=== PATIENT | male | born 1965 | race Caucasian/White ===

== ENCOUNTER 2018-07-27 08:46 | Emergency (ER) | payer BC, SELFPAY ==
[2018-07-27 08:47] VITALS: BP 155/93; PULSE 89; RESP 16; TEMP 36.6; BMI 21.6
--- NOTE | 2018-07-27 08:55 | ED.VISSUMM ---
- ER Visit Summary Date of Service: 07/27/18 Chief Complaint: Back pain History of Present Illness: The patient is a 53 M who presents with back pain. He has had this for 2 weeks. Is in the right thoracic area near the scapula. Is worse with movement. Remaining still makes it better. Advil is not helping at home. He denies any specific injury. Physical Examination: Vital signs are reviewed. Back exam reveals tenderness in the right paraspinal area in the thoracic region. There is no scapular tenderness. There is no spinal tenderness. Test Results: None performed Emergency Department Course and Treatment: This appears to be a muscular strain. He has no bony tenderness. I do not feel x-rays are necessary. I will give him naproxen and Flexeril. He will follow-up with his PCP Treatment Plan: [] Disposition: Discharge Impression: Thoracic strain This note was generated with [employer] dictation software. It may contain incorrect words, spelling, and punctuation that were not noted in review of the chart prior to signing ED Disposition - Plan for ED Patient: Chief Complaint: Back
--- NOTE | 2018-07-27 08:56 | ED.DEP ---
ED Disposition - Plan for ED Patient: Disposition: Home or Assisted Living Chief Complaint: Back Instructions: ED Spasm Back No Trauma Prescriptions: Naproxen [Naprosyn] 500 mg PO BID PRN #20 tab Cyclobenzaprine [Flexeril] 10 mg PO TID PRN #20 tab PRN Reason: Muscle Spasm
[2018-07-27] MEDS: Naproxen 500 MG Tablet PO (09:12)
[2018-07-27 09:22] VITALS: PULSE 68; RESP 16; O2SAT 98
== END 2018-07-27 09:27 | disposition home or self-care (01) ==
PROVIDERS: Emergency Provider Emergency Medicine; Family Provider Internal Medicine; PCP Internal Medicine
DX: S29.012A Strain of muscle and tendon of back wall of thorax, initial encounter (principal); X58.XXXA Exposure to other specified factors, initial encounter; Y93.9 Activity, unspecified; Y92.9 Unspecified place or not applicable; Z72.0 Tobacco use
CPT/HCPCS: 99283

== ENCOUNTER → 2025-01-27 | Outpatient (CLI) | payer OTHER, SELFPAY ==
[2025-01-27 12:27] LABS: Hematocrit 45.1 % (40-54); Hemoglobin 15.0 g/dL (13.0-16.5); Immature Granulocytes Count 0.020 X10^3/uL (0.0-0.0); Mean Corp Hgb Conc 33.3 g/dL (32-36); Mean Corpuscular Volume 86.2 fL (80-94); Mean Platelet Vol. 9.4 fl (6.2-12.0); NRBC Flagged by Analyzer 0 % (0-5); Platelet Count 343 K/mm3 (150-450); RBC Distribution Width CV 12.8 % (11.6-14.6); RBC Distribution Width SD 39.9 fl (35.1-43.9); Red Blood Count 5.23 M/mm3 (4.6-6.2); White Blood Count 5.9 K/mm3 (4.4-11.0)
[2025-01-27 13:12] LABS: AST(SGOT) 18 U/L (<=37); Alanine Aminotransfer ALT/SGPT 15 U/L (<=46); Albumin, Serum 4.2 g/dL (3.5-5.0); Alkaline Phosphatase 66 U/L (40-129); Anion Gap 10 (5-15); BUN 16 mg/dL (4-19); BUN/Creat Ratio 15.6 RATIO (10-20); Calcium,Total 9.6 mg/dL (7.6-11.0); Carbon Dioxide 25.2 mmol/L (21.0-32.0); Chloride 108 mmol/L (98-108); Cholesterol 214 mg/dL (<=200); Globulin 2.9 g/dL (2.2-4.2); Glucose 113 mg/dL (70-99); Low Density Lipoprotein Calc. 146 mg/dL; Potassium 5.2 mmol/L (3.3-5.1); Triglycerides 141 mg/dL; Very Low Density Lipoprotein 28 mg/dL (5-40); cholesterol:hdl ratio screen 5.40
== END | disposition home or self-care (01) ==
PROVIDERS: PCP Internal Medicine; Referring Provider Internal Medicine; Visit Provider Internal Medicine
DX: I10 Essential (primary) hypertension (principal); Z13.6 Encounter for screening for cardiovascular disorders
CPT/HCPCS: 36415; 80053; 80061; 84443; 85025

== ENCOUNTER 2025-02-15 07:49 | Outpatient (CLI) | payer OTHER, SELFPAY ==
--- NOTE | 2025-02-15 07:51 | CT_ITS ---
PROCEDURE: LOW DOSE CT LUNG SCREENING 02/15/2025 REASON FOR EXAM: SCREENING TECHNIQUE: LOW DOSE CT LUNG SCREENING Coronal and Sagittal reconstruction series were provided. One or more dose reduction techniques were used (e.g., Automated exposure control, adjustment of the mA and/or kV according to patient size, use of iterative reconstruction technique). REFERENCE LINK: [employer] Lung-RADS RADIATION DOSE SUMMARY: CTDlvol: 3 mGy DLP: 124 mGycm COMPARISON: No FINDINGS: Central airways are patent. There is bronchial wall thickening. Moderate emphysema. Biapical scarring. Well inflated lungs. No consolidation, effusion, or pneumothorax. On the left, series 2, image 130, 2 mm noncalcified lower lobe nodule. On the right, series 2, image 194, 4 mm noncalcified lower lobe nodule. Image 2 origin 16, 3 mm noncalcified lower lobe nodule. Image 123, 2 mm noncalcified middle lobe nodule. Unremarkable base of neck and axilla. Thoracic spine scoliosis and degeneration. Normal esophagus. Normal heart size. No acute vascular pathology. No acute chest wall findings. No acute upper abdominal findings. CT/Low Dose CT Lung Screening IMPRESSION: Bilateral noncalcified lung nodules measuring up to 4 mm. Lung-RADS Category: 2 Other Significant Findings: Reading Location: [facility]
--- OUTSIDE RECORDS SUMMARY | 2025-02-15 07:52 | XMS RPT_ITS | CCD ---
Author Organization [facility] Care Team Providers Care Supervisor Partial Denture Department Name Role Phone CRISTINO DIEGO Unavailable Unavailable DEMETRIS PACHECO DO Attending Unavailable DEMETRIS PACHECO DO Primary Care Unavailable DEMETRIS PACHECO DO Admitting Unavailable Delvin BOOTHE, Dr. Christianson Primary Care Provider [phone] Dr. Sammy Hargrove MD Referring Provider Robbie BOOTHE, Dr. Jaramillo Attending Provider Dr. Ella Avalos MD Primary Care Provider [phone] Dr. Ella Avalos MD Referring Provider Sammy Hargrove Referring Unavailable Sammy Hargrove Primary Care Unavailable Ella Avalos Attending Unavailable Ella Avalos Primary Care Unavailable lEla Avalos Referring Unavailable Ella Avalos Attending Unavailable Ella Avalos Primary Care Unavailable Ella Avalos Referring Unavailable Ella Avalos Attending Unavailable Medications Current Medications Medication Drug Class(es) Dates Sig (Normalized) Sig (Original) atorvastatin 10 mg oral tablet (1 source) HMG-CoA Reductase Inhibitor Start: 01-27-2025 take 1 tablet by mouth at bedtime Atorvastatin (Lipitor) 10 mg tablet Active 10 mg PO AT BEDTIME 30 January 27, 2025 12:00am lisinopril 5 mg oral tablet (2 sources) Angiotensin Converting Enzyme Inhibitor Start: 01-22-2025 take 1 tablet by mouth once daily Lisinopril 5 mg tablet Active 5 mg PO daily 30 January 22, 2025 12:00am 24 hr loratadine 10 mg / pseudoephedrine sulfate 240 mg extended release oral tablet (2 sources) alpha-Adrenergic Agonist Start: 01-22-2025 take 1 tablet by mouth every twenty-four hours Loratadine-Pseudoe phedrine (Claritin-D 24 Hour) 10-240 mg tablet extended release 24 hr Active 1 {tbl} PO daily January 22, 2025 12:00am On Hold: Order Changed montelukast 10 mg oral tablet (2 sources) Leukotriene Receptor Antagonist Start: 01-22-2025 take 1 tablet by mouth at bedtime Montelukast (Singulair) 10 mg tablet Active 10 mg PO AT BEDTIME 30 January 22, 2025 12:00am Completed/Discontinued Medications Medication Drug Class(es) Dates Sig (Normalized) Sig (Original) cyclobenzaprine hydrochloride 10 mg oral tablet (2 sources) Muscle Relaxant Start: 07-27-2018 End: 01-22-2025 take 1 tablet by mouth three times daily as needed for muscle spasms Cyclobenzaprine 10 MG tablet Discontinued 10 mg PO THREE TIMES A DAY as needed for Muscle Spasm July 27, 2018 1:00am January 22, 2025 1:52pm naproxen 500 mg oral tablet (2 sources) Nonsteroidal Anti-inflammatory Drug Start: 07-27-2018 End: 01-22-2025 take 1 tablet by mouth twice daily as needed Naproxen 500 MG tablet Discontinued 500 mg PO TWICE DAILY NEEDED July 27, 2018 1:00am January 22, 2025 1:52pm Problems Active Problems Problem Classification Problem Date Documented Date Episodic/Chronic Administrative/social admission (3 sources) First encounter by subject; Translations: [Persons encountering health services in other specified circumstances] Onset: 01-29-2025 01-22-2025 Episodic Allergic reactions (2 sources) Allergic condition; Translations: [Allergy, unspecified, initial encounter] 01-22-2025 Episodic E Codes: Struck by; against (1 source) Striking against or struck by other objects, initial encounter; Translations: [Striking against or struck by other objects, initial encounter] Onset: 04-14-2022 Episodic Essential hypertension (5 sources) Essential hypertension; Translations: [Essential (primary) hypertension] Onset: 01-31-2025 01-22-2025 Chronic Open wounds of extremities (3 sources) Laceration without foreign body of right great toe without damage to nail, initial encounter; Translations: [Laceration without foreign body of right great toe without damage to nail, initial encounter] Onset: 04-14-2022 Episodic Other screening for suspected conditions (not mental disorders or infectious disease) (10 sources) Patient encounter status; Translations: [Encounter for screening for cardiovascular disorders] Onset: 01-29-2025 01-22-2025 Episodic Other upper respiratory disease (1 source) Seasonal allergy; Translations: [Other seasonal allergic rhinitis] 01-22-2025 Chronic Other upper respiratory disease (1 source) Other seasonal allergic rhinitis; Translations: [Other seasonal allergic rhinitis] Onset: 01-29-2025 Chronic Residual codes; unclassified (2 sources) FH: Migraine; Translations: [Family history of epilepsy and other diseases of the nervous system] 01-22-2025 Episodic Residual codes; unclassified (1 source) Medication refused; Translations: [Immunization not carried out because of patient refusal] 01-22-2025 Episodic Residual codes; unclassified (1 source) Immunization not carried out because of patient refusal; Translations: [Immunization not carried out because of patient refusal] Onset: 01-29-2025 Episodic Screening and history of mental health and substance abuse codes (1 source) Encounter for screening for depression; Translations: [Encounter for screening for depression] Onset: 01-29-2025 Episodic Unclassified (1 source) Unknown / UNK(Unknown) Onset: 01-19-2018 Past or Other Problems Problem Classification Problem Date Documented Da te Episodic/Chronic Unclassified (1 source) RT SHOULDER INJURY Onset: 01-19-2018 Results Test Name Value Interpretation Reference Range Facility Absolute lymphocyte countOrd ered By: Ella Avalos on 01-27-2025 Lymphocytes Auto (Unsp spec) [#/Vol] 1.99 10*3/uL 0.83-4.51 [facility] Absolute neutrophil countOrd ered By: Ella Avalos on 01-27-2025 Neutrophils (Bld) [#/Vol] 3.3 10*3/uL 2.0-7.7 [facility] Anion gap in Serum or Plasma Ordered By: Ella Avalos on 01-27-2025 Anion gap [Moles/Vol] 10 mmol/L 5-[address] [facility] Automated lymphocyte count a s percentage of total leukocytesOrdered By: Ella Avalos on 01-27-2025 Lymphocytes/100 WBC Auto (Unsp spec) 33.5 % 19-41 [facility] BUN/creatinine ratioOrdered By: Ella Avalos on 01-27-2025 Urea nitrogen/Creatinine [Mass ratio] 15.6 mg/mg 10-20 [facility] Basophil percentageOrdered B y: Ella Avalos on 01-27-2025 Basophils/100 WBC (Bld) 0.7 % 0-1 [facility] Bilirubin, totalOrdered By: Ella Avalos on 01-27-2025 Bilirubin [Mass/Vol] 0.40 mg/dL 0.00-1.30 [facility] CBC W/Diff, Automatedon Absolute Lymph 1.99 X10 3/uL Normal 0.83-4.51 [facility] Comment on above: Performed By: #### L 100.0100, L501.9520, L500.4050, L500.4100 #### [facility] [address] [place], [address] Absolute Neut 3.3 X10 3/uL Normal 2.0-7.7 [facility] Comment on above: Performed By: #### L 100.0100, L501.9520, L500.4050, L500.4100 #### [facility] [address] [place], [address] Basophils/100 WBC (Bld) 0.7 % Normal 0-1 [facility] Comment on above: Performed By: #### L 100.0100, L501.9520, L500.4050, L500.4100 #### [facility] [address] [place], [address] Eosinophils/100 WBC (Bld) 1.5 % Normal 0-5 [facility] Comment on above: Performed By: #### L 100.0100, L501.9520, L500.4050, L500.4100 #### [facility] [address] [place], [address] Erythrocyte distribution width (RBC) [Ratio] 12.8 % Normal 11.6-14.6 [facility] Comment on above: Performed By: #### L 100.0100, L501.9520, L500.4050, L500.4100 #### [facility] [address] [place], [address] Hematocrit (Bld) [Volume fraction] 45.1 % Normal 40-54 [facility] Comment on above: Performed By: #### L 100.0100, L501.9520, L500.4050, L500.4100 #### [facility] [address] [place], [address] Hemoglobin (Bld) [Mass/Vol] 15.0 g/dL Normal 13.0-16.5 [facility] Comment on above: Performed By: #### L 100.0100, L501.9520, L500.4050, L500.4100 #### [facility] [address] [place], [address] IG% 0.300 Normal 0.0-0.9 [facility] Comment on above: Result Comment: IG% - Immature Granulocytes (promyelocytes, myelocytes and metamyelocytes) > 1% indicates that a LEFT SHIFT is Present. Performed By: #### L 100.0100, L501.9520, L500.4050, L500.4100 #### [facility] [address] [place], [address] Lymphocytes/100 WBC (Bld) 33.5 % Normal 19-41 [facility] Comment on above: Performed By: #### L 100.0100, L501.9520, L500.4050, L500.4100 #### [facility] [address] [place], [address] MCH (RBC) [Entitic mass] 28.7 pg Normal 27.0-32.0 [facility] Comment on above: Performed By: #### L 100.0100, L501.9520, L500.4050, L500.4100 #### [facility] [address] [place], [address] MCHC (RBC) [Mass/Vol] 33.3 g/dL Normal 32-[address] [facility] Comment on above: Performed By: #### L 100.0100, L501.9520, L500.4050, L500.4100 #### [facility] [address] [place], [address] MCV (RBC) [Entitic vol] 86.2 fL Normal 80-94 [facility] Comment on above: Performed By: #### L 100.0100, L501.9520, L500.4050, L500.4100 #### [facility] [address] [place], [address] Monocytes/100 WBC (Bld) 9.3 % Normal 0-10 [facility] Comment on above: Performed By: #### L 100.0100, L501.9520, L500.4050, L500.4100 #### [facility] [address] [place], [address] Neutrophils/100 WBC (Bld) 54.7 % Normal 47-70 [facility] Comment on above: Performed By: #### L 100.0100, L501.9520, L500.4050, L500.4100 #### [facility] [address] [place], [address] Nucleated RBC (Bld) [#/Vol] 0 10*3/uL Normal 0-5 [facility] Comment on above: Performed By: #### L 100.0100, L501.9520, L500.4050, L500.4100 #### [facility] [address] [place], [address] Platelet mean volume (Bld) [Entitic vol] 9.4 fL Normal 6.2-12.0 [facility] Comment on above: Performed By: #### L 100.0100, L501.9520, L500.4050, L500.4100 #### [facility] [address] [place], [address] Platelets (Bld) [#/Vol] 343 10*3/uL Normal 150-450 [facility] Comment on above: Performed By: #### L 100.0100, L501.9520, L500.4050, L500.4100 #### [facility] [address] [place], [address] RBC (Bld) [#/Vol] 5.23 10*6/uL Normal 4.6-6.2 [facility] Comment on above: Performed By: #### L 100.0100, L501.9520, L500.4050, L500.4100 #### [facility] [address] [place], [address] RDW SD 39.9 fl Normal 35.1-43.9 [facility] Comment on above: Performed By: #### L 100.0100, L501.9520, L500.4050, L500.4100 #### [facility] [address] [place], [address] WBC (Bld) [#/Vol] 5.9 10*3/uL Normal 4.4-11.0 [facility] Comment on above: Performed By: #### L 100.0100, L501.9520, L500.4050, L500.4100 #### [facility] [address] [place], [address] Calculated very low density lipoprotein (VLDL) cholesterol measurementOrdered By: Ella Avalos on 01-27-2025 Calculated very low density lipoprotein (VLDL) cholesterol measurement 28 mg/dL 5-40 [facility] Carbon dioxide, total [Moles /volume] in Central venous bloodOrdered By: Ella Avalos on 01-27-2025 CO2 [Moles/Vol] 25.2 mmol/L 21.0-32.0 [facility] Chloride assayOrdered By: Willian Avalos on 01-27-2025 Chloride [Moles/Vol] 108 mmol/L 98-108 [facility] Comprehensive Metabolic Prof ilon 01-27-2025 Albumin [Mass/Vol] 4.2 g/dL Normal 3.5-5.0 [facility] Comment on above: Performed By: #### L 100.0100, L501.9520, L500.4050, L500.4100 #### [facility] [address] [place], [address] Albumin/Globulin [Mass ratio] 1.4 {ratio} Normal 0.9-2.4 [facility] Comment on above: Performed By: #### L 100.0100, L501.9520, L500.4050, L500.4100 #### [facility] [address] [place], [address] ALK PHOS 66 U/L Normal 40-129 [facility] Comment on above: Performed By: #### L 100.0100, L501.9520, L500.4050, L500.4100 #### [facility] [address] [place], [address] ALT [Catalytic activity/Vol] 15 U/L Normal <=46 [facility] Comment on above: Performed By: #### L 100.0100, L501.9520, L500.4050, L500.4100 #### [facility] [address] [place], [address] AST [Catalytic activity/Vol] 18 U/L Normal <=37 [facility] Comment on above: Performed By: #### L 100.0100, L501.9520, L500.4050, L500.4100 #### [facility] [address] [place], [address] Bilirubin [Mass/Vol] 0.40 mg/dL Normal 0.00-1.30 [facility] Comment on above: Performed By: #### L 100.0100, L501.9520, L500.4050, L500.4100 #### [facility] [address] [place], [address] BUN/CRE 15.6 RATIO Normal 10-20 [facility] Comment on above: Performed By: #### L 100.0100, L501.9520, L500.4050, L500.4100 #### [facility] [address] [place], [address] Calcium [Mass/Vol] 9.6 mg/dL Normal 7.6-11.0 [facility] Comment on above: Performed By: #### L 100.0100, L501.9520, L500.4050, L500.4100 #### [facility] [address] [place], [address] Chloride [Moles/Vol] 108 mmol/L Normal 98-108 [facility] Comment on above: Performed By: #### L 100.0100, L501.9520, L500.4050, L500.4100 #### [facility] [address] [place], [address] CO2 [Moles/Vol] 25.2 mmol/L Normal 21.0-32.0 [facility] Comment on above: Performed By: #### L 100.0100, L501.9520, L500.4050, L500.4100 #### [facility] [address] [place], [address] Creatinine [Mass/Vol] 1.05 mg/dL Normal 0.70-1.[address] [facility] Comment on above: Performed By: #### L 100.0100, L501.9520, L500.4050, L500.4100 #### [facility] [address] [place], [address] GAP 10 Normal 5-15 [facility] Comment on above: Performed By: #### L 100.0100, L501.9520, L500.4050, L500.4100 #### [facility] [address] [place], [address] GFR/1.73 sq M.predicted among non-blacks MDRD (S/P/Bld) [Vol rate/Area] 83 mL/min/{1.73_m2} Normal >60 [facility] Comment on above: Result Comment: mL/m in/1.73m2 CKD-EPI Creatinine Equation (2020) Performed By: #### L 100.0100, L501.9520, L500.4050, L500.4100 #### [facility] [address] [place], [address] Globulin (S) [Mass/Vol] 2.9 g/dL Normal 2.2-4.2 [facility] Comment on above: Performed By: #### L 100.0100, L501.9520, L500.4050, L500.4100 #### [facility] [address] [place], [address] Glucose [Mass/Vol] 113 mg/dL High 70-99 [facility] Comment on above: Performed By: #### L 100.0100, L501.9520, L500.4050, L500.4100 #### [facility] [address] [place], [address] Potassium [Moles/Vol] 5.2 mmol/L High 3.3-5.[address] [facility] Comment on above: Performed By: #### L 100.0100, L501.9520, L500.4050, L500.4100 #### [facility] [address] [place], [address] Sodium [Moles/Vol] 143 mmol/L Normal 133-145 [facility] Comment on above: Performed By: #### L 100.0100, L501.9520, L500.4050, L500.4100 #### [facility] [address] [place], [address] T PROT 7.1 g/dL Normal 5.9-8.4 [facility] Comment on above: Performed By: #### L 100.0100, L501.9520, L500.4050, L500.4100 #### [facility] [address] [place], [address] Urea nitrogen [Mass/Vol] 16 mg/dL Normal 4-19 [facility] Comment on above: Performed By: #### L 100.0100, L501.9520, L500.4050, L500.4100 #### [facility] [address] [place], [address] Eosinophil percentageOrdered By: Ella Avalos on 01-27-2025 Eosinophils/100 WBC (Bld) 1.5 % 0-5 [facility] Erythrocyte distribution wid th ratioOrdered By: Ella Avalos on 01-27-2025 Erythrocyte distribution width (RBC) [Ratio] 12.8 % 11.6-14.6 [facility] Erythrocyte distribution wid th standard deviationOrdered By: Ella Avalos on 01-27-2025 Erythrocyte distribution width (RBC) [Ratio] 39.9 fl 35.1-43.9 [facility] Glomerular filtration rate ( GFR) estimation/1.73 sq m using serum, plasma, or whole bOrdered By: Ella Avalos on 01-27-2025 GFR/1.73 sq M.predicted among non-blacks MDRD (S/P/Bld) [Vol rate/Area] 83 mL/min/{1.73_m2} >60 [facility] Comment on above: mL/min/1.73m2 CKD-EP I Creatinine Equation (2020) Hematocrit Auto (Bld) [Volum e fraction]Ordered By: Ella Avalos on 01-27-2025 Hematocrit (Bld) [Volume fraction] 45.1 % 40-54 [facility] Hemoglobin measurementOrdere d By: Ella Avalos on 01-27-2025 Hemoglobin (Bld) [Mass/Vol] 15.0 g/dL 13.0-16.5 [facility] Immature granulocytes/100 WB C Auto (Bld)Ordered By: Ella Avalos on 01-27-2025 Immature granulocytes/100 WBC (Bld) 0.300 % 0.0-0.9 [facility] Comment on above: IG% - Immature Granu locytes (promyelocytes, myelocytes and metamyelocytes) > 1% indicates that a LEFT SHIFT is Present. LDL calc ser/plasOrdered By: Ella Avalos on 01-27-2025 Cholesterol in LDL [Mass/Vol] 146 mg/dL [facility] Comment on above: Lzfyumyaus=410-624 m g/dL & Higher Avlu=131 mg/dL or greater Laboratory - Chemistry and C hemistry - challengeOrdered By: Ella Avalos on 01-27-2025 AST [Catalytic activity/Vol] 18 U/L <38 [facility] Lipid Profileon 01-27-2025 CHOL:HDL 5.40 Normal [facility] Comment on above: Performed By: #### L 100.0100, L501.9520, L500.4050, L500.4100 #### [facility] [address] [place], [address] Cholesterol [Mass/Vol] 214 mg/dL High <=200 [facility] Comment on above: Result Comment: Chol esterol level, Desirable <200 mg/dL Borderline high cholesterol 200-239 mg/dL High cholesterol >=240 mg/dL Recommendations of the NCEP Adult Treatment Panel for the following risk-cutoff thresholds for the [place] population. Performed By: #### L 100.0100, L501.9520, L500.4050, L500.4100 #### [facility] [address] [place], [address] Cholesterol in HDL [Mass/Vol] 40 mg/dL Normal [facility] Comment on above: Result Comment: [place] Cholesterol Education Program (NCEP) guidelines: <40 mg/dL: Low HDL-cholesterol (major risk factor for CHD) >= 60 mg/dL: High HDL-cholesterol (negative risk factor for CHD) HDL-cholesterol is affected by a number of factors, e.g. smoking, exercise, hormones, sex and age. Performed By: #### L 100.0100, L501.9520, L500.4050, L500.4100 #### [facility] [address] [place], [address] Cholesterol in LDL [Mass/Vol] 146 mg/dL Normal [facility] Comment on above: Result Comment: Bord hxyybc=878-592 mg/dL Higher Vdii=404 mg/dL or greater Performed By: #### L 100.0100, L501.9520, L500.4050, L500.4100 #### [facility] [address] [place], [address] Cholesterol in VLDL [Mass/Vol] 28 mg/dL Normal 5-40 [facility] Comment on above: Performed By: #### L 100.0100, L501.9520, L500.4050, L500.4100 #### [facility] [address] [place], [address] Triglyceride [Mass/Vol] 141 mg/dL Normal [facility] Comment on above: Result Comment: The drugs N-Acetylcysteine and Metamizole may falsely depress this assay. Normal range: <150 mg/dL Borderline High: 150-199 mg/dL High: 200-499 mg/dL Very High: >500 mg/dL Performed By: #### L 100.0100, L501.9520, L500.4050, L500.4100 #### [facility] [place], [address] MCV (mean corpuscular volume ) determinationOrdered By: Ella Avalos on 01-27-2025 MCV (RBC) [Entitic vol] 86.2 fL 80-94 [facility] Mean corpuscular hemoglobin (MCH) determinationOrdered By: Ella Avalos on 01-27-2025 MCH (RBC) [Entitic mass] 28.7 pg 27.0-32.0 [facility] Mean corpuscular hemoglobin concentration (MCHC) determinationOrdered By: Ella Avalos on 01-27-2025 MCHC (RBC) [Mass/Vol] 33.3 g/dL 32-[address] [facility] Mean platelet volume determi nationOrdered By: Ella Avalos on 01-27-2025 Platelet mean volume (Bld) [Entitic vol] 9.4 fL 6.2-12.0 [facility] Monocyte percentageOrdered B y: Ella Avalos on 01-27-2025 Monocytes/100 WBC (Bld) 9.3 % 0-10 [facility] Neutrophil percentageOrdered By: Ella Avalos on 01-27-2025 Neutrophils/100 WBC (Bld) 54.7 % 47-70 [facility] Nucleated red blood cell per centageOrdered By: Ella Avalos on 01-27-2025 Nucleated RBC/100 WBC (Bld) [Ratio] 0 % 0-5 [facility] Platelet countOrdered By: Willian Avalos on 01-27-2025 Platelets (Bld) [#/Vol] 343 10*3/uL 150-450 [facility] Potassium measurement (mass/ volume)Ordered By: Ella Avalos on 01-27-2025 Potassium (Unsp spec) [Mass/Vol] 5.2 mmol/L High 3.3-5.1 [facility] RBC Auto (Bld) [#/Vol]Ordere d By: Ella Avalos on 01-27-2025 RBC (Bld) [#/Vol] 5.23 10*6/uL 4.6-6.2 [facility] Screening total cholesterol/ high density lipoprotein (HDL) cholesterol ratioOrdered By: Ella Avalos on 01-27-2025 Cholesterol.total/Choles terol in HDL [Mass ratio] 5.40 {ratio} [facility] Serum creatinine measurement (mass/volume)Ordered By: Ella Avalos on 01-27-2025 Creatinine [Mass/Vol] 1.05 mg/dL 0.70-1.[address] [facility] Serum globulin measurementOr dered By: Ella Avalos on 01-27-2025 Globulin (S) [Mass/Vol] 2.9 g/dL 2.2-4.2 [facility] Serum glucose measurement (m ass/volume)Ordered By: Ella Avalos on 01-27-2025 Glucose [Mass/Vol] 113 mg/dL High 70-99 [facility] Serum or plasma alanine goldman otransferase (ALT) measurementOrdered By: Ella Avalos on 01-27-2025 ALT [Catalytic activity/Vol] 15 U/L <47 [facility] Serum or plasma albumin salma urement (mass/volume)Ordered By: Ella Avalos on 01-27-2025 Albumin [Mass/Vol] 4.2 g/dL 3.5-5.0 [facility] Serum or plasma albumin/glob ulin mass ratioOrdered By: Ella Avalos on 01-27-2025 Albumin/Globulin [Mass ratio] 1.4 {ratio} 0.9-2.4 [facility] Serum or plasma alkaline carie sphatase measurementOrdered By: Ella Avalos on 01-27-2025 ALP [Catalytic activity/Vol] 66 U/L 40-129 [facility] Serum or plasma calcium salma urement (mass/volume)Ordered By: Ella Avalos on 01-27-2025 Calcium [Mass/Vol] 9.6 mg/dL 7.6-11.0 [facility] Serum or plasma cholesterol in HDL measurement (mass/volume)Ordered By: Ella Avalos on 01-27-2025 Cholesterol in HDL [Mass/Vol] 40 mg/dL >40 [facility] Comment on above: National Cholesterol Education Program (NCEP) guidelines:<40 mg/dL: Low HDL-cholesterol (major risk factor for CHD)>= 60 mg/dL: High HDL-cholesterol (negative risk factor for CHD)HDL-cholesterol is affected by a number of factors, e.g. smoking, exercise, hormones, sex and age. Serum or plasma cholesterol measurement (mass/volume)Ordered By: Ella Avalos on 01-27-2025 Cholesterol [Mass/Vol] 214 mg/dL High <201 [facility] Comment on above: Cholesterol level, D esirable <200 mg/dLBorderline high cholesterol 200-239 mg/dLHigh cholesterol >=240 mg/dLRecommendations of the NCEP Adult Treatment Panel for the following risk-cutoff thresholds for the [place] population. Serum or plasma urea nitroge n measurement (mass/volume)Ordered By: Ella Avalos on 01-27-2025 Urea nitrogen [Mass/Vol] 16 mg/dL 4-19 [facility] Sodium levelOrdered By: Viral Avalos on 01-27-2025 Sodium [Moles/Vol] 143 mmol/L 133-145 [facility] TSH DL <= 0.005 mIU/L QnOrde red By: Ella Avalos on 01-27-2025 TSH Qn 1.220 uIU/mL 0.300-4.200 [facility] Thyroid Stim Hormone (TSH)on 01-27-2025 TSH 1.220 uIU/mL Normal 0.300-4.200 [facility] Comment on above: Performed By: #### L 100.0100, L501.9520, L500.4050, L500.4100 #### [facility] [address] [place], [address] Total proteinOrdered By: Jayson Avalos on 01-27-2025 Protein [Mass/Vol] 7.1 g/dL 5.9-8.4 [facility] Triglycerides measurementOrd ered By: Ella Avalos on 01-27-2025 Triglyceride [Mass/Vol] 141 mg/dL <199 [facility] Comment on above: The drugs N-Acetylcy steine and Metamizole may falsely depress this assay. Normal range: <150 mg/dLBorderline High: 150-199 mg/dLHigh: 200-499 mg/dLVery High: >500 mg/dL White blood cell (WBC) count Ordered By: Ella Avalos on 01-27-2025 WBC (Bld) [#/Vol] 5.9 10*3/uL 4.4-11.0 [facility] Internal Medicine Office Vis itotanya 01-21-2025 Internal Medicine Office Visit [facility] [address] [place] [address] [place] [address] OFFICE VISIT Date of Service: 01/22/25 MR#: [id number] Acct: [id number] Name: LIA MAHONEY Rep #: [id number] : 1965 Provider: Dr. 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 Instructions: Order Changed montelukast 10 mg tablet 10 mg PO QHS #30 tabs 01/22/2509/17 Rx (Singulair) PFSH Medical History Pleurisy FHx: migraine headaches Allergies Surgical History History of toe surgery Family History (Updated 01/22/25 @ 16:[address] Ella Avalos MD) Father CVA (cerebral vascular accident) Hyperlipidemia Hypertension COPD (chronic obstructive pulmonary disease) Brother Diabetes Hyperlipidemia Hypertension Mother Hx of blood clots Hyperlipidemia Hypertension OZZY (obstructive sleep apnea) Social History (Updated 01/22/25 @ 14:[address] Ella Avalos MD) adopted: No household members: spouse housing: house current occupational status: employed current occupation: metal fabrication current occupational exposures/hazards: No pets and animals: Yes leisure activities: exercise and music history of recent travel: Yes ([place] x 3 times a year ) out of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
== END 2025-02-15 23:59 | disposition home or self-care (01) ==
LOC: CT 07:50
PROVIDERS: PCP Internal Medicine; Referring Provider Internal Medicine; Visit Provider Internal Medicine
DX: Z12.2 Encounter for screening for malignant neoplasm of respiratory organs (principal); R91.8 Other nonspecific abnormal finding of lung field
CPT/HCPCS: 71271

== ENCOUNTER → 2025-07-03 | Outpatient (CLI) | payer OTHER, SELFPAY | END | disposition home or self-care (01) | LOC: LABSPEC 12:39 | PROVIDERS: PCP Internal Medicine; Referring Provider Physician Assistant; Visit Provider Physician Assistant | DX: J06.9 Acute upper respiratory infection, unspecified (principal) | CPT/HCPCS: 87631 ==